=== PATIENT | female | born 1990 | race Caucasian/White ===

== ENCOUNTER 2020-02-21 10:45 | Outpatient (CLI) | payer OTHER | END 2020-02-21 10:46 | disposition home or self-care (01) | LOC: LAB 10:45 | PROVIDERS: ATTEND Obstetrics & Gynecology | DX: Z32.00 Encounter for pregnancy test, result unknown (principal) | CPT/HCPCS: 36415; 84702; 86900; 86901 ==

== ENCOUNTER 2020-02-25 12:53 | Outpatient (CLI) | payer OTHER ==
[2020-02-25 14:13] LABS: HGB - HEMOGLOBIN 12.6 g/dL (12.0-16.0); MEAN CORPUSCULAR HEMOGLOBIN 29.9 pg (27.0-31.0); MEAN CORPUSCULAR HGB CONC 33.5 g/dL (32.0-36.0); MEAN CORPUSCULAR VOLUME 89.1 fL (81.0-99.0); MEAN PLATELET VOLUME 9.8 fL (7.9-10.8); RED BLOOD COUNT 4.22 10^6/uL (4.20-5.40); RED CELL DISTRIBUTION WIDTH 12.3 % (12.0-15.0); WHITE BLOOD COUNT 6.5 x10^3/uL (4.8-10.8)
[2020-02-25 14:38] LABS: HEMOGLOBIN A1c% 5.2 % (4.27-6.07)
== END 2020-02-25 12:54 | disposition home or self-care (01) ==
LOC: LAB 12:53
PROVIDERS: ATTEND Obstetrics & Gynecology
DX: D68.52 Prothrombin gene mutation (principal); D68.9 Coagulation defect, unspecified; Z12.4 Encounter for screening for malignant neoplasm of cervix
CPT/HCPCS: 36415; 81599; 82306; 83036; 85027; 85210; 85303; 85306; 85613; 85730; 86146; 86147; 86762; 86787

== ENCOUNTER 2020-11-28 08:00 | Outpatient (CLI) | payer OTHER ==
[2020-11-29 12:28] LABS: BILIRUBIN,URINE NEGATIVE (NEGATIVE); GLUCOSE, URINE (UA) NEGATIVE (NEGATIVE); KETONES,URINE (UA) NEGATIVE (NEGATIVE); LEUKOCYTE ESTERASE, URINE NEGATIVE (NEGATIVE); NITRITE,URINE NEGATIVE (NEGATIVE); OCCULT BLOOD,URINE NEGATIVE (NEGATIVE); PH,URINE 6.5 PH (5.0-7.5); PROTEIN,URINE NEGATIVE (NEGATIVE); UROBILINOGEN,URINE 0.2 (NORMAL) E.U./dL (NORMAL)
[2020-11-29 12:41] LABS: BACTERIA,URINE Rare /HPF (None Seen); CLARITY,URINE CLEAR (CLEAR); RBC,URINE None Seen /HPF (0-5); SQUAMOUS EPITHELIAL CELL,UR FEW Squamous (<= Few); WBC,URINE 0-3 /HPF (0-5)
== END 2020-11-28 23:59 | disposition home or self-care (01) ==
LOC: LAB.WC 08:00
PROVIDERS: ATTEND Obstetrics & Gynecology
DX: Z32.01 Encounter for pregnancy test, result positive (principal)
CPT/HCPCS: 81001; 87086

== ENCOUNTER 2020-12-07 15:13 | Outpatient (CLI) | payer OTHER ==
[2020-12-07 16:36] LABS: BASOPHILS # (AUTO) 0.1 10^3/uL (0.0-0.1); BASOPHILS % (AUTO) 0.4 %; EOSINOPHILS # (AUTO) 0.1 10^3/uL (0.0-0.7); HGB - HEMOGLOBIN 12.3 g/dL (12.0-16.0); LYMPHOCYTES % (AUTO) 17.1 %; MEAN CORPUSCULAR HEMOGLOBIN 29.5 pg (27.0-31.0); MEAN CORPUSCULAR HGB CONC 33.2 g/dL (32.0-36.0); MEAN CORPUSCULAR VOLUME 88.7 fL (81.0-99.0); MEAN PLATELET VOLUME 10.2 fL (7.9-10.8); MONOCYTES # (AUTO) 0.7 10^3/uL (0.0-1.0); MONOCYTES % (AUTO) 6.2 %; PLT - PLATELET COUNT 298 10^3/uL (130-450); RED BLOOD COUNT 4.17 10^6/uL (4.20-5.40); RED CELL DISTRIBUTION WIDTH 12.6 % (12.0-15.0)
--- NOTE | 2020-12-07 16:52 | Ultrasound Report ---
PROCEDURE: OB First Trimester w/TV INDICATIONS: TEST POSITIVE OUTSIDE/PRIOR DATING DATA: Last menstrual period (LMP): 10/09/2020. LMP-based estimated date of delivery (LUCIDNA): 07/16/2021. First dating scan (date and location): 12/07/2020. Estimated date of delivery (LUCINDA) from first dating scan: 07/20/2021. TECHNIQUE: Real-time scanning was performed of the fetus and maternal pelvic organs, with image documentation. Endovaginal scanning was also performed to better visualize the fetus and maternal ovaries. COMPARISON: FINDINGS: Embryo: Single live intrauterine is identified with crown-rump length measuring 1.5 cm cor responding to 7 weeks 6 days. There is a hypoechoic focus suggests a small subchorionic hemorrhage me asuring 7 x 4 x 6 mm. Heart rate: 138 bpm. Measurement variability in dating: +/- 4 weeks by LMP, +/- 7 days by mean sac diameter (use before 6 weeks gestation if crown-rump length not able to be measured), +/- 5 days by crown-rump length (6-12 weeks gestation). Maternal organs: Ovaries demonstrates a right corpus luteal cyst measuring 2.3 x 1.3 x 1.4 cm. IMPRESSION: Single live intrauterine with ultrasound gestational age of 7 weeks 6 days. Small subchorionic hemorrhage as above. Reviewed by: Carmen Garcia MD on 12/07/2020 4:50 PM PDT Approved by: Carmen Garcia MD on 12/07/2020 4:50 PM PDT Station ID: [id number]
[2020-12-08 13:18] LABS: HIV AG/AB 4TH GEN NON-REACTIVE (NON-REACTIVE)
[2020-12-08 14:36] LABS: HEPATITIS B SURFACE ANTIGEN NON-REACTIVE (NON-REACTIVE); HEPATITIS C ANTIBODY NON-REACTIVE (NON-REACTIVE)
== END 2020-12-07 15:14 | disposition home or self-care (01) ==
LOC: DI 15:13
PROVIDERS: ATTEND Obstetrics & Gynecology
DX: Z32.01 Encounter for pregnancy test, result positive (principal); Z36.89 Encounter for other specified antenatal screening
CPT/HCPCS: 36415; 85025; 86592; 86762; 86787; 86803; 86850; 86900; 86901; 87340; 87389

== ENCOUNTER 2021-02-26 03:09 | Outpatient (CLI) | payer OTHER | END 2021-02-26 03:10 | disposition EMS.NT | LOC: EMS 03:09 | DX: O99.891 Other specified diseases and conditions complicating pregnancy (principal); R42 Dizziness and giddiness; Z3A.20 20 weeks gestation of pregnancy ==

== ENCOUNTER 2021-02-26 10:41 | Outpatient (CLI) | payer OTHER ==
--- NOTE | 2021-02-26 16:57 | Ultrasound Report ---
PROCEDURE: OB Detailed Eval INDICATIONS: SUPERVISION OF OUTSIDE/PRIOR DATING DATA: Last menstrual period (LMP): 10/09/2020. LMP-based estimated date of delivery (LUCINDA): 07/16/2021. First dating scan (date and location): 12/07/2020. Estimated date of delivery (LUCINDA) from first dating scan: 07/20/2021. The below data below was generated using the ultrasound LUCINDA of 07/20/2021 TECHNIQUE: Real-time scanning was performed of the fetus, with image documentation and biometric measurements. Endovaginal scanning: Not performed. COMPARISON: 12/07/2020. FINDINGS: General: A single living intrauterine gestation is present. Presentation: Vertex Placenta: Placental position is anterior, without previa. Amniotic fluid index: 11.4 cm cm, normal for gestational age. Largest pocket 3.6 cm. heart rate: 158 beats per minute. Maternal cervical canal: 3.8 cm long; normal length is 2.5 cm or more. No funneling. Fluid or mucou s plug in the cervical canal. biometrics: Biparietal diameter: 4.73 cm, 20 weeks 2 days Head circumference: 16.93 cm, 19 weeks 4 days Abdominal circumference: 14.65 cm, 20 weeks 0 days Femur length: 2.96 cm, 19 weeks 1 day Estimated gestational age from initial scan: 19 weeks 3 days Composite gestational age from present scan: 19 weeks 5 days Estimated weight and percentile: 301 g, 55th percentile Measurement variability in biometric dating: +/- 10 days from 12-20 weeks gestation, +/- 2 weeks from 20-30 weeks gestation, +/- 3 weeks at 30 weeks gestation or later. Anatomic survey: Neuro: Ventricles are normal at less than 10 mm. Cisterna magna is normal at 3-11 mm. Cerebellum i s normal in size and morphology. Nuchal skin fold: Normal at less than 6 mm between 14 and 20 weeks gestational age. Face: Nose and lips are normal. profile not seen. Spine: No evidence for spina bifida. Heart: 4-chambered heart is present, with normal ventricular outflow tracts. Diaphragm: Diaphragm is intact. Stomach: Left-sided stomach is present. Kidneys: No hydronephrosis. Normal is less than 5 mm in 2nd trimester, less than 7 mm in 3rd trimester. Cord: 3 vessel cord has orthotopic insertion. Bladder: Normal in size. Extremities: All 4 extremities are visualized. IMPRESSION: 1. Olivares living intrauterine at 19 weeks 5 days based on today's ultrasound. This is co ncordant with the first trimester ultrasound. There is expected interval growth. Fetus is in the 55th percentile for weight. 2. Normal placenta and amniotic fluid. 3. profile is not seen. Otherwise normal anatomic survey. Consider follow-up OB ultrasound. Reviewed by: Lionel Temple MD on 02/26/2021 4:56 PM PST Approved by: Lionel Temple MD on 02/26/2021 4:56 PM PST Station ID: [id number]
== END 2021-02-26 10:42 | disposition home or self-care (01) ==
LOC: DI 10:41
PROVIDERS: ATTEND Obstetrics & Gynecology
DX: Z34.92 Encounter for supervision of normal pregnancy, unspecified, second trimester (principal); Z36.89 Encounter for other specified antenatal screening